=== PATIENT | female | born 1960 | race Caucasian/White ===

== ENCOUNTER 2017-03-16 07:40 | Emergency (ER) | payer MEDICARE, MEDICAID ==
[2017-03-16] MEDS ORDERED: NORMAL SALINE 1,000 ML IV ONE ×2 (07:46→12:51)
[2017-03-16 07:58] LABS: Mean Corpuscular Hgb Conc 34.8 g/dl (32-36); Mean Platelet Volume 8.9 fl (6.0-9.5); Platelet Count 398 K/mm3 (150-450); Red Cell Distribution Width 13.2 % (11.5-14.0); White Blood Count 12.3 K/mm3 (4.0-10.5)
[2017-03-16 08:01] LABS: Urine Bilirubin 1 mg/dl (NEGATIVE); Urine Blood Negative /ul (NEGATIVE); Urine Ketone 15 mg/dL (NEGATIVE); Urine Nitrite Negative (NEGATIVE); Urine Protein Negative (NEGATIVE); Urine Urobilinogen Normal (NORMAL)
[2017-03-16] MEDS ORDERED: PROMETHAZINE HCL 12.5 MG in DEXTROSE 5 % IN WATER 50 ML IV ONE ×2 (08:07)
[2017-03-16] MEDS ORDERED: HYDROmorphone HCL 2 MG/ML VIAL IV ONE ×2 (08:07→13:10)
[2017-03-16] MEDS ORDERED: HYDROmorphone HCL 1 MG/ML DISP.SYRIN ONE ×2 (08:09→11:57)
[2017-03-16 08:11] LABS: Albumin * 1.9 gm/dl (3.4-5.0); Anion Gap 18.4 mmol/L (6.8-13.8); BUN/Creatinine Ratio 13.2 (9.0-21.6); Bilirubin, Total 0.6 mg/dL (0.0-1.1); Ca. Corrected For Albumin 9.7 mg/dL (8.4-10.2); Calcium * 8.3 mg/dL (7.9-10.9); Carbon Dioxide 20.9 mmol/L (24-32.6); Potassium 3.3 mmol/L (3.4-4.6); Total Cells Counted 100; Total Protein 6.5 gm/dL (6.2-8.2)
[2017-03-16 08:15] LABS: Urine Appearance Slightly Cloudy; Urine Bacteria 1+; Urine Color Yellow; Urine RBC TRACE /hpf (0-5); Urine WBC 0-5 /hpf (0-5)
[2017-03-16] MEDS ORDERED: HYDROmorphone HCL 2 MG/ML VIAL ONE ×2 (08:15→13:10)
--- NOTE | 2017-03-16 08:18 | ERNOTE ---
Abdominal HPI - Narrative Date of Service: 03/16/17 - General Chief Complaint: Abdominal Pain Time Seen by Provider: 03/16/17 07:59 Source: patient, family Exam Limitations: no limitations - Immun/Allergies/Home Medications Immunizatons: IMMUNIZATION HX Immunizations Up to Date No History of Influenza Vaccine No Hx Pneumococcal Vaccination No Allergies/Adverse Reactions: Allergies codeine Allergy (Intermediate, Verified 03/16/17 07:55) Hives Sulfa (Sulfonamide Antibiotics) Allergy (Intermediate, Verified 03/16/17 07:55) Hives Home Medications: HOME MEDICATIONS Dexlansoprazole [Dexilant] 30 mg PO DAILY 03/16/17 [Last Taken Unknown] Hydroxychloroquine Sulfate [Plaquenil] 200 mg PO BID 03/16/17 [Last Taken Unknown] Levothyroxine Sodium [Synthroid] 75 mcg PO DAILY 03/16/17 [Last Taken Unknown] Magnesium 250 mg PO DAILY 03/16/17 [Last Taken Unknown] Metoclopramide HCl [Reglan] 5 mg PO TID 03/16/17 [Last Taken Unknown] Potassium Chloride [Klor-Con 10] 10 meq PO TID 03/16/17 [Last Taken Unknown] Torsemide [Demadex] 20 mg PO DAILY 03/16/17 [Last Taken Unknown] - History of Present Illness Narrative: The patient says she has had a lot of left sided abdominal pain and colon problems for 1 and a half years. Last night about midnight she was wakened from sleep with pain in her left abdomen and left sided abdominal distension. She had a small brown soft bm and urinated a small amount of normal appearing urine. She went back to sleep. She woke this morning with severe constant aching left side abdominal pain, distension, nausea, no radiation. No aggravating or alleviating factors. Came to ER by ambulance. Her daughter just called. Told us she has lost a lot of weight in the last two weeks and was in the [facility] for the same thing two weeks ago. Has had an appendectomy. Some sort of bowel surgery at [place] as a teenager. Timing: constant Quality: severe, aching Activities at Onset: sleep Modifying Factors - (Improves): Present: other - nothing Modifying Factors - (Worsens): Present: other - nothing Associated Symptoms: Present: nausea Prior Abdominal Problems: Present: similar symptoms Prior Treatment: Present: recently hospitalized Review of Systems - Review of Systems Constitutional: Present: weakness, malaise, weight loss EYE: Present: no symptoms reported ENT: Present: no symptoms reported Respiratory: Present: no symptoms reported Cardiology: Present: no symptoms reported Gastrointestinal/Abdominal: Present: See HPI Genitourinary: Present: no symptoms reported Musculoskeletal: Present: no symptoms reported Skin: Present: no symptoms reported Neurological: Present: no symptoms reported Endocrine: Present: no symptoms reported Hematologic/Lymphatic: Present: no symptoms reported Psych: Present: no symptoms reported All Other Systems: All systems neg except as marked - Patient's Past Medical History Patient History - Medical: Other - Lupus, broken ankle Patient History - Cardiac/Respiratory: Pneumonia Patient History - Cancer: No Hx of Cancer Patient History - Surgical Procedures: Appendectomy Patient History - Other: None - Social History Living Situations: alone Psych History: No pertinent hx Smoking Status: Current every day smoker Have you smoked in the past 12 months: Yes Alcohol Use: none Drug Use: none - Immunizations Immunizations Up to Date: No Hx Pneumococcal Vaccination: No History of Influenza Vaccine: No Physical Exam - Physical Exam General Appearance: Present: alert, mild distress, thin, cachetic Head Exam: Present: normal inspection, no evidence of injury Eye Exam: Normal inspection: bilateral, PERRL: bilateral, EOMI: bilateral Ears, Nose, Throat: Present: normal ENT inspection Neck: Present: normal inspection Respiratory: Present: no respiratory distress, decreased breath sounds Cardiovascular/Chest: Present: regular rate, rhythm, no murmur Gastrointestinal/Abdominal: Present: normal bowel sounds, soft, no organomegaly , tenderness - tender, distended, especially towards the left Back Exam: Present: normal inspection Extremity Exam: Present: no edema, other - thin Neurological Exam: Present: alert, oriented, other - anxious Skin Exam: Present: cool/dry. Absent: cyanosis Lymphatic Exam: Present: no adenopathy ED Progress - Results and Orders Patient's Lab Results:: I have reviewed the patient's lab results. - Vital Signs Patient's Vital Signs:: I have reviewed the patient's vital signs. Vital Signs: Vital Signs 03/16/17 07:41 Temperature 37.3 C Pulse Rate 130 H Respiratory 30 H Rate Blood Pressure 109/74 O2 Sat by Pulse 98 Oximetry - Progress/Reassessment Chief Complaint: Abdominal Pain Progress:: Improved Progress Note-Subjective: 03/16/17 13:05 I spoke with the patient and her daughter about the findings and need for a higher level of care, and they agree on transfer to the [facility]. I spoke with Dr. Overton at the [facility], and he agrees to accept the patient in transfer by ambulance. Will probably need several surgical services, plus additional care due to immune suppresion due to her Lupus. 03/16/17 13:06 Departure - Departure Clinical Impression: Pelvic abscess in female, Anemia of chronic disease Lupus (systemic lupus erythematosus) Qualifiers: Systemic lupus erythematosus type: unspecified Disposition: [facility] Condition: Fair
[2017-03-16 08:22] LABS: Cocaine Ur Negative (NEGATIVE); Urine Barbiturate Negative (NEGATIVE); Urine Benzodiazepines Negative (NEGATIVE); Urine Opiates Negative (NEGATIVE); Urine PCP Negative (NEGATIVE); Urine THC Negative (NEGATIVE)
[2017-03-16] MEDS ORDERED: DIATRIZOATE MEGLU/DIATRIZO SOD 30 ML BTL PO ONE (08:23)
[2017-03-16] MEDS ORDERED: DIATRIZOATE MEGLU/DIATRIZO SOD 30 ML BTL ONE (08:24)
[2017-03-16 08:34] LABS: Band 28 % (0-2.0); Immature Granulocyte 1 (0-1); Lymphocyte 13 % (20-51); Monocyte 6 % (0-9); Neutrophil 52 % (42-75); Neutrophil # 6.4 K/mm3 (1.3-6.0)
[2017-03-16 08:35] LABS: Hypersegmented Polys Trace; Toxic Granulation 1+
[2017-03-16 08:36] LABS: Basophilic Stippling Trace; Polychromasia Trace
[2017-03-16 08:37] LABS: Hypochromia Trace
--- OUTSIDE RECORDS SUMMARY | 2017-03-16 08:56 | XMS REPORT | Continuity of Care Document ---
:1960 Author Organization [facility] [place] [address] Care Team Providers Name Role Phone Provider, None Per Patient Primary Care Provider Unavailable Source Comments This disclosure is being made pursuant to the [employer] program and maynot contain all information available regarding this patient.[facility] Active Allergies and Adverse Reactions Allergen Noted Date Severity Reactions Comments Codeine 07/06/2012 Low Itching Sulfa Antibiotics 07/06/2012 Low Itching Current Medications Be aware that medications may not be up to date as of this document. Alwaysverify current medications with the patient. Prescription Sig. Disp. Refills Start Date End Date Status metoclopramide (REGLAN) 5 Take 5 mg by Active MG tablet mouth 3 (three) times daily. docusate sodium (COLACE) Take 100 mg by Active 100 MG capsule mouth 2 (two) times daily. hydroxychloroquine Take 200 mg by Active (PLAQUENIL) 200 MG tablet mouth 2 (two) times daily. potassium chloride Take 20 mEq by Active (K-TABS) 10 MEQ CR tablet mouth 3 (three) times daily. Omeprazole (PRILOSEC PO) Take 10-20 mg Active by mouth daily. levothyroxine (SYNTHROID, Take 50 mcg by Active LEVOTHROID) 50 MCG tablet mouth every morning. torsemide (DEMADEX) 20 MG Take 60 mg by Active tablet mouth daily. oxyCODONE-acetaminophen Take 2 tablets 30 tablet 0 07/06/2012 Active (PERCOCET) 5-325 MG per by mouth every tablet 6 (six) hours as needed for Pain. levofloxacin (LEVAQUIN) Take 1.5 10 tablet 0 07/31/2012 Active 500 MG tablet tablets by mouth daily. metroNIDAZOLE (FLAGYL) 500 Take 1 tablet 40 tablet 0 07/31/2012 Active MG tablet by mouth 4 (four) times daily. HYDROcodone-acetaminophen Take 2 tablets 20 tablet 0 07/31/2012 Active (NORCO) 5-325 MG per by mouth every tablet 6 (six) hours as needed for Pain. ondansetron (ZOFRAN-ODT) 4 Take 1 tablet 10 tablet 0 07/31/2012 Active MG disintegrating tablet by mouth every 8 (eight) hours as needed for Nausea. Active Problems Not on file Immunizations Name Dates Previously Given Next Due Influenza Split 07/02/2012 Social History Tobacco Use Types Packs/Day Years Used Date Former Smoker 1 Alcohol Use Drinks/Week oz/Week Comments Yes "sometimes" Last Filed Vital Signs Vital Sign Reading Time Taken Blood Pressure 138/90 03/19/2013 11:27 AM CDT Pulse 94 03/19/2013 11:27 AM CDT Temperature 35.8 C (96.5 F) 03/19/2013 11:27 AM CDT Respiratory Rate 20 03/19/2013 11:27 AM CDT Height 1.613 m (5' 3.5") 03/19/2013 11:27 AM CDT Weight 60.92 kg (134 lb 4.9 oz) 03/19/2013 11:27 AM CDT Body Mass Index 23.41 03/19/2013 11:27 AM CDT Oxygen Saturation 100% 07/31/2012 9:05 PM [employer] Plan of Care Date Type Specialty Providers Description 03/25/2017 Appointment Family Medicine [facility]jan [address], [address] [place] [address] [phone] (Fax) Health Maintenance Due Date Last Done Comments Tetanus/Pertussis (1 - Tdap) 1981 Pap Smear 1983 Colonoscopy 2012 Mammogram 2012 Well Adult Visit 2012 Influenza Immunization (#1) 2017 07/02/2012 Results from Last 3 Months Not on file Insurance Payer Benefit Plan / Subscriber ID Type Phone Address Group MEDICARE MEDICARE A AND B [id number] [phone] [address] [place] [address] [place] [id number] [place] [phone] [place]
[2017-03-16] MEDS ORDERED: POTASSIUM CHLORIDE 20 MEQ TABLET.SA PO ONE (10:36)
[2017-03-16] MEDS ORDERED: POTASSIUM CHLORIDE 20 MEQ TABLET.SA ONE (10:37)
[2017-03-16] MEDS ORDERED: HYDROmorphone HCL 1 MG/ML DISP.SYRIN IV ONE (11:51)
[2017-03-16] MEDS ORDERED: PIPERACILLIN SODIUM/TAZOBACTAM 3.375 GM in DEXTROSE 5 % IN WATER 100 ML IV ONE ×2 (11:52)
[2017-03-16] MEDS ORDERED: NORMAL SALINE 1,000 ML IV PRN (11:52)
[2017-03-16 12:51] VITALS: BP 120/87
[2017-03-16] MEDS ORDERED: NON-FORMULARY 1 DOSE DOSE (Potassium Chloride [Klor-Con 10] 10 MEQ) PO SCH (13:00)
[2017-03-16] MEDS ORDERED: METOCLOPRAMIDE HCL 5 MG PO SCH (13:00)
[2017-03-16] MEDS ORDERED: KETOROLAC TROMETHAMINE 30 MG/ML VIAL ONE (13:10)
[2017-03-16] MEDS ORDERED: KETOROLAC TROMETHAMINE 30 MG/ML VIAL IV ONE (13:11)
[2017-03-16] MEDS ORDERED: HYDROXYCHLOROQUINE SULFATE 200 MG PO SCH (21:00)
[2017-03-17] MEDS ORDERED: DEXLANSOPRAZOLE 30 MG PO SCH (09:00)
[2017-03-17] MEDS ORDERED: LEVOTHYROXINE SODIUM 75 MCG PO SCH (09:00)
[2017-03-17] MEDS ORDERED: MAGNESIUM 250 MG PO SCH (09:00)
== END 2017-03-16 13:34 | disposition short-term general hospital (02) ==
LOC: ER 07:40
DX: N73.9 Female pelvic inflammatory disease, unspecified (principal); D63.8 Anemia in other chronic diseases classified elsewhere; M32.9 Systemic lupus erythematosus, unspecified; F17.200 Nicotine dependence, unspecified, uncomplicated